=== PATIENT | male | born 1955 | race Caucasian/White ===

== ENCOUNTER 2021-11-29 23:07 | Emergency (ER) | payer MEDICAID, SELFPAY ==
[2021-11-29 23:09] VITALS: BP 155/74; PULSE 72; RESP 18; TEMP 36.9; O2SAT 98; BMI 34.1
[2021-11-29 23:24] VITALS: PULSE 71; O2SAT 96
[2021-11-29 23:27] VITALS: BMI 34.1
[2021-11-29 23:30] VITALS: PULSE 65; O2SAT 95
[2021-11-29 23:31] VITALS: BP 131/65; PULSE 65; O2SAT 94
[2021-11-29 23:35] LABS: Microscopic, Urine URINE MICROSCOPIC (MICROSCOPIC)
[2021-11-29 23:37] LABS: Appearance,Urine CLEAR (Clear); Bilirubin,Urine Negative (Negative); Blood, Urine 3+ (Negative); Color,Urine YELLOW (Yellow); Glucose,Urine (UA) Negative (Negative); Ketones,Urine Negative (Negative); Leukocyte Esterase,Urine 1+ (Negative); Nitrate,Urine Negative (Negative); Protein,Urine Negative (Negative); Specific Gravity, Urine 1.025 (1.005-1.030); Urobilinogen,Urine 0.2 EU/dl (0.2)
[2021-11-29 23:40] LABS: Basophils # 0.1 K/mm3 (0-0.2); Basophils % 0.7 % (0.1-2.0); Eosinophils # 0.1 K/mm3 (0.0-0.4); Eosinophils % 1.3 % (0.1-12.0); Hematocrit 46.6 % (42.0-52.0); Hemoglobin 14.5 g/dL (14.1-18.0); Lymphocytes # 2.1 K/mm3 (0.7-4.5); Lymphocytes % 25.2 % (10-50); Mean Corpuscular HGB Conc 31.1 g/dL (31.8-35.4); Mean Corpuscular Hemoglobin 28.7 pg (27.0-31.2); Mean Corpuscular Volume 92.1 fl (80-94); Mean Platelet Volume 8.5 fl (7.4-10.4); Monocytes # 0.6 K/mm3 (0.1-1.0); Neutrophils # 5.3 K/mm3 (1.8-7.8); Neutrophils % 65.7 % (37.0-80.0); Platelet Count 233 K/mm3 (142-424); Red Blood Count 5.06 M/mm3 (4.60-6.20); White Blood Count 8.1 K/mm3 (4.8-10.8)
[2021-11-29 23:41] LABS: RBC,Urine 20-50 #/hpf (0-3)
[2021-11-29 23:43] LABS: Alanine Aminotransferase 66 U/L (12-78); Albumin Level 4.1 g/dl (3.5-5.0); Albumin/Globulin Ratio 1.4 (1.1-1.8); Alkaline Phosphatase 89 U/L (38-126); Amylase 69 U/L (30-110); Anion Gap 11.1 mEq/L (5-15); Aspartate Amino Transferase 58 U/L (17-59); Bilirubin,Total 3.2 mg/dl (0.2-1.3); Blood Urea Nitrogen 15 mg/dl (9-20); Calcium 8.9 mg/dl (8.4-10.2); Carbon Dioxide 31 mmol/L (22.0-30.0); Chloride 100 mmol/L (98-107); Creatinine Clearance Estimated 60 mL/min (50-200); Estimated Glomerular Filt Rate 41 ml/min (>60); GFR (African American) 49 ML/MIN (>60); Globulin 2.9 g/dL (1.3-3.2); Glucose 145 mg/dl (74-100); Lipase 28 U/L (23-300); Potassium 4.1 mmoL/L (3.5-5.1); Sodium 138 mmol/L (136-145)
[2021-11-29 23:45] VITALS: PULSE 73; O2SAT 96
[2021-11-29 23:48] LABS: C-Reactive Protein 22.9 mg/L (0-4)
--- NOTE | 2021-11-29 23:53 | CT_ITS ---
PROCEDURE INFORMATION: Exam: CT Abdomen And Pelvis Without Contrast Exam date and time: 11/29/2021 11:59 PM Age: 66 years old Clinical indication: Abdominal pain; Flank; Left; Additional info: Left flank pain TECHNIQUE: Imaging protocol: Computed tomography of the abdomen and pelvis without contrast. Radiation optimization: All CT scans at this facility use at least one of these dose optimization techniques: automated exposure control; mA and/or kV adjustment per patient size (includes targeted exams where dose is matched to clinical indication); or iterative reconstruction. COMPARISON: No relevant prior studies available. FINDINGS: Lungs: Moderate scarring and atelectasis in the lower lungs. Heart: Borderline cardiomegaly. Coronary artery calcifications. Liver: Hepatic steatosis. Gallbladder and bile ducts: Cholelithiasis. Pancreas: Normal. No ductal dilation. Spleen: Normal. No splenomegaly. Adrenal glands: Normal. No mass. Kidneys and ureters: Left hydronephrosis secondary to a 3-4 mm calculus in the distal ureter. Low attenuation renal lesions measuring up to 2 cm in diameter are incompletely characterized, but are likely cysts. No followup imaging is warranted. Stomach and bowel: Unremarkable. No obstruction. No mucosal thickening. Appendix: Unremarkable appendix. Intraperitoneal space: Unremarkable. No free air. No significant fluid collection. Vasculature: The arteries demonstrate moderate atherosclerotic disease. Lymph nodes: Unremarkable. No enlarged lymph nodes. Urinary bladder: Unremarkable as visualized. Reproductive: Moderate prostate enlargement. Bones/joints: The lumbar spine demonstrates moderate degenerative changes at multiple levels. Soft tissues: Unremarkable. IMPRESSION: 1. Left hydronephrosis secondary to a 3-4 mm calculus in the distal ureter. 2. Cholelithiasis. 3. Hepatic steatosis. COMMENTS: Consistent with the [employer]'s Incidental Findings Committee white paper (J Am Willie Radiol 2018): Any incidental renal lesion less than 1 cm or classified as too small to characterize, or any incidental cystic renal lesion characterized as simple-appearing, is likely benign. No follow-up imaging is recommended for these lesions per consensus recommendations based on imaging criteria.
[2021-11-30 00:02] LABS: Procalcitonin 0.268 ng/mL (0.0-2.0)
[2021-11-30 00:05] LABS: Erythrocyte Sedimentation Rate 17 mm/hr (0-20)
--- NOTE | 2021-11-30 00:24 | HMH.EDABDPAI ---
Discharge Plan Disposition Patient Disposition: Home, Self-Care Chief Complaint: Abdominal Pain Prescriptions Prescriptions: New tamsulosin [Flomax] 0.4 mg capsule 0.4 mg PO DAILY Qty: 10 0RF tamsulosin [Flomax] 0.4 mg capsule 0.4 mg PO DAILY Qty: 10 0RF No Action atorvastatin [Lipitor] 40 mg Tablet 40 mg PO HS aspirin 81 mg Tablet 81 mg PO DAILY metoprolol succinate 25 mg Tablet Extended Release 24 Hr 25 mg PO DAILY Referrals Follow up/Referrals: Provider,Referral, [Primary Care Provider] - See instructions Clinical Impressions Clinical Impression: Renal colic on left side, Cholelithiasis Instructions Patient Instructions: DI for Kidney Stones Discharge ED Provider: Tal Ortiz Abdominal Pain HPI General Chief Complaint: Abdominal Pain Stated Complaint: Left abdominal pain Time Seen by Provider: 11/30/21 00:24 Mode of Arrival: Family Vehicle Source of Information: Patient and Medical Record Limitations: No Limitations Description of Symptoms (Recalled from ER Triage Doc. by RN): Pt c/o L abd pain & pelvic pain, that radiates to L back. Reports is began about 12 hr ago and has increased in pain. Denies any N/V/D. Denies fever or chills. Denies any urinary complaints. History of Present Illness HPI narrative: acute onset of lt sided abd pain complaint: flank pain Onset (ago): hour(s) Consistency: intermittent Location: L flank Severity: moderate Related Data Home Medications Medication Instructions Recorded Confirmed aspirin 81 mg tablet 81 mg PO DAILY heart health 11/29/21 11/29/21 atorvastatin 40 mg tablet (Lipitor) 40 mg PO HS High cholesterol 11/29/21 11/29/21 metoprolol succinate 25 mg 25 mg PO DAILY High blood pressure 11/29/21 11/29/21 tablet,extended release 24 hr Previous Rx's Medication Instructions Recorded tamsulosin 0.4 mg capsule (Flomax) 0.4 mg PO DAILY #10 caps 11/30/21 tamsulosin 0.4 mg capsule (Flomax) 0.4 mg PO DAILY #10 caps 11/30/21 Allergies Allergy/AdvReac Type Severity Reaction Status Date / Time No Known Allergies Allergy Verified 11/29/21 23:28 [facility] Medical History (Updated 11/30/21 @ 01:34 by Tal Ortiz MD) High blood cholesterol High blood pressure Surgical History (Updated 11/29/21 @ 23:59 by Kath Carpenter RN) H/O heart bypass surgery Social History (Updated 11/30/21 @ 00:03 by Kath Carpenter RN) Smoking Status: Former smoker alcohol intake: never substance use type: denies use current occupational status: retired housing: house lives independently: Yes marital status: pets and animals: No ROS Obtained: Yes All systems reviewed & no additional complaints except as documented Physical Exam General General appearance: alert Head Head exam: normocephalic Eye Eye exam: Present PERRL and EOMI ENT ENT exam: Present mucous membranes moist Neck Neck exam: Absent trachea midline Respiratory Respiratory exam: Present normal lung sounds bilaterally Cardiovascular Cardiovascular exam: Present regular rate Abdominal Exam Abdominal exam: Present soft Extremities Exam Extremities exam: Absent calf tenderness Back Exam Back exam: Present CVA tenderness (L) Neurological Exam Neurological exam: Present alert, oriented X3 and CN II-XII intact Psychiatric Psychiatric exam: Present normal affect Skin Skin exam: Absent rash Medical Decision Making Medical Records Medical records reviewed: Yes I reviewed the patient's medical records. Rohan Inquiry Pt receiving controlled substance: No Vital Signs: 11/29/21 23:09 11/29/21 23:24 11/29/21 23:30 Temperature 98.4 F Temperature Source Oral Pulse Rate 71 65 Pulse Rate [Right] 72 Respiratory Rate 18 Blood Pressure Blood Pressure [Right Arm] 155/74 H Blood Pressure Mean Blood Pressure Mean [Right Arm] 101 Blood Pressure Source [Right Arm] Automatic Cuff 02 Sat by Pulse
[2021-11-30 01:39] VITALS: BP 137/71; PULSE 87; RESP 19; TEMP 36.8; O2SAT 97
[2021-11-30 01:55] VITALS: BP 130/64; PULSE 70; RESP 18; TEMP 36.6; O2SAT 99
== END 2021-11-30 01:57 | disposition home or self-care (01) ==
PROVIDERS: Emergency Provider Emergency Medicine
DX: N13.2 Hydronephrosis with renal and ureteral calculous obstruction (principal); N13.1 Hydronephrosis with ureteral stricture, not elsewhere classified; K76.0 Fatty (change of) liver, not elsewhere classified; Z79.82 Long term (current) use of aspirin; Z79.899 Other long term (current) drug therapy; Z86.79 Personal history of other diseases of the circulatory system; Z87.891 Personal history of nicotine dependence; E78.5 Hyperlipidemia, unspecified; R03.0 Elevated blood-pressure reading, without diagnosis of hypertension
CPT/HCPCS: 74176; 80053; 81001; 82150; 83690; 84145; 85025; 85651; 86140; 87086; 96365; 96375; 99284; J2405

== ENCOUNTER 2022-12-27 00:36 | Emergency (ER) | payer MEDICAID, SELFPAY ==
[2022-12-27 00:36] VITALS: BP 175/93; PULSE 73; RESP 18; TEMP 36.7; O2SAT 96; BMI 34.7
--- NOTE | 2022-12-27 00:45 | ECG_ITS ---
APPROVED REPORT Exam: Resting ECG HR:62 bpm ECG Measurements Heart Rate 62 AXES VT 159 P 33 QRSd 100 QRS 40 QT 386 T 58 QTc 391 Conclusion SINUS RHYTHM NORMAL ECG UNCONFIRMED REPORT Electronically signed by : Mk Cantu MD 12/27/2022 07:28:51
--- NOTE | 2022-12-27 00:45 | CT_ITS ---
PROCEDURE INFORMATION: Exam: CTA Chest With Contrast Exam date and time: 12/27/2022 1:09 AM Age: 67 years old Clinical indication: Pain; Chest pressure; Additional info: Chest pain rad to back TECHNIQUE: Imaging protocol: Computed tomographic angiography of the chest with contrast. Exam focused on the arteries. 3D rendering (Not supervised by radiologist): MIP and/or 3D reconstructed images were created by the technologist. Radiation optimization: All CT scans at this facility use at least one of these dose optimization techniques: automated exposure control; mA and/or kV adjustment per patient size (includes targeted exams where dose is matched to clinical indication); or iterative reconstruction. Contrast material: ISOVUE; Contrast volume: 100 ml; Contrast route: INTRAVENOUS (IV); REPORTING DATA: Count of CT and Cardiac NM exams in prior 12 months: This patient has received 0 known CTs and 0 known cardiac nuclear medicine studies in the 12 months prior to the current study. COMPARISON: CT ABDOMEN PELVIS WO CON 11/29/2021 11:59 PM FINDINGS: Pulmonary arteries: Normal. No pulmonary emboli. Aorta: There is atherosclerotic disease of the visualized aorta and its major branch vessels. Lungs: Changes of interstitial lung disease without honeycombing identified at the lung bases, favoring NSIP. Scattered areas of bronchial wall thickening which are likely chronic inflammatory. Pleural spaces: Unremarkable. No pneumothorax. No pleural effusion. Heart: Unremarkable. No cardiomegaly. No pericardial effusion. Coronary arteries: There is moderate coronary atherosclerotic disease/calcification. Lymph nodes: Unremarkable. No enlarged lymph nodes. Gallbladder and bile ducts: There is cholelithiasis within an otherwise normal gallbladder. Kidneys and ureters: Simple appearing left renal cyst. Bones/joints: The patient is status post median sternotomy. There is diffuse degenerative disease of the visualized osseous structures. Soft tissues: Unremarkable. IMPRESSION: 1. No evidence for clinically relevant pulmonary arterial filling defect, dense parenchymal consolidation, pleural effusion, or pneumothorax. No acute intrathoracic anomaly. 2. Findings suggest interstitial lung disease, appearance favoring NSIP. COMMENTS: Consistent with the [employer]'s Incidental Findings Committee white paper (J Am Willie Radiol 2018): Any incidental renal lesion less than 1 cm or classified as too small to characterize, or any incidental cystic renal lesion characterized as simple-appearing, is likely benign. No follow-up imaging is recommended for these lesions per consensus recommendations based on imaging criteria.
--- NOTE | 2022-12-27 00:48 | HMH.EDGENADL ---
Discharge Plan Disposition Patient Disposition: Home, Self-Care Condition: Good Prescriptions Prescriptions: No Action atorvastatin [Lipitor] 40 mg Tablet 40 mg PO HS aspirin 81 mg Tablet 81 mg PO DAILY metoprolol succinate 25 mg Tablet Extended Release 24 Hr 25 mg PO DAILY tamsulosin [Flomax] 0.4 mg capsule 0.4 mg PO DAILY Qty: 10 0RF Referrals Follow up/Referrals: Trino Spears MD [Staff Physician] - See instructions Provider,MD Isma [Primary Care Provider] - See instructions Activity Restrictions/Add. Instructions Additional Instructions/Restrictions: You were evaluated in the emergency department today. Please follow-up with your primary care provider as well as your cardiology teacher. Continue taking your medications at home as prescribed. Return to the emergency department for any new or worsening symptoms. Clinical Impressions Clinical Impression: Chest pain Qualifiers: Chest pain type: unspecified Qualified Code(s): R07.9 - Chest pain, unspecified Instructions Patient Instructions: DI for Atypical Chest Pain Discharge ED Provider: Yasmin Adkins General Adult HPI General Chief complaint: Chest Pain Stated complaint: CP Time Seen by Provider: 12/27/22 00:40 Mode of Arrival: Ambulatory Source of Information: Patient Limitations: No Limitations Description of Symptoms (Recalled from ER Triage Doc. by RN): Patient reports midsternal chest pain that radiates to his back that started approx at 10pm. States he has taken 2 nitro, tylenol, oxycodone and 2 aspirin with no relief of his symptoms. History of Present Illness HPI narrative: This patient is a 67-year-old male with a history of CAD and hypertension presenting to the emergency department for evaluation with concern for substernal chest pain radiating straight through to his upper back. He stated this started suddenly while he was watching TV around 10:00 PM. He took 2 nitroglycerin, oxycodone, aspirin, and Tylenol at home with no improvement in his symptoms. He states that he is well prior to this with no fevers, chills, cough, congestion, shortness of breath, abdominal pain, nausea, vomiting, changes bowel movements, or other concerns. No traumatic injuries noted. Nothing seems to make his symptoms better or worse. Related Data Home Medications Medication Instructions Recorded Confirmed aspirin 81 mg tablet 81 mg PO DAILY heart health 11/29/21 11/29/21 atorvastatin 40 mg tablet (Lipitor) 40 mg PO HS High cholesterol 11/29/21 11/29/21 metoprolol succinate 25 mg 25 mg PO DAILY High blood pressure 11/29/21 11/29/21 tablet,extended release 24 hr Previous Rx's Medication Instructions Recorded tamsulosin 0.4 mg capsule (Flomax) 0.4 mg PO DAILY #10 caps 11/30/21 Allergies Allergy/AdvReac Type Severity Reaction Status Date / Time No Known Allergies Allergy Verified 11/29/21 23:28 [facility] Disclaimer: The information contained in this section may have been updated after the patient was seen, as this information can be updated by other users. Medical History High blood cholesterol High blood pressure Surgical History H/O heart bypass surgery Social History Smoking Status: Never smoker alcohol intake: never substance use type: denies use current occupational status: retired Travel in the last 8 weeks: None housing: house lives independently: Yes marital status: pets and animals: No ROS Obtained: Yes All systems reviewed & no additional complaints except as documented Physical Exam General General appearance: alert and in no apparent distress Head Head exam: atraumatic and normocephalic Eye Eye exam: Present normal appearance, PERRL and EOMI ENT ENT exam: Present normal exam, normal oropharynx, mucous m
[2022-12-27 00:52] LABS: Basophils % 0.5 % (0.1-2.0); Eosinophils # 0.1 K/mm3 (0.0-0.4); Eosinophils % 1.1 % (0.1-12.0); Hematocrit 47.7 % (42.0-52.0); Hemoglobin 15.2 g/dL (14.1-18.0); Lymphocytes # 1.7 K/mm3 (0.7-4.5); Lymphocytes % 20.1 % (10-50); Mean Corpuscular HGB Conc 31.8 g/dL (31.8-35.4); Mean Corpuscular Hemoglobin 28.4 pg (27.0-31.2); Mean Corpuscular Volume 89.2 fl (80-94); Mean Platelet Volume 8.2 fl (7.4-10.4); Monocytes # 0.3 K/mm3 (0.1-1.0); Monocytes % 3.9 % (1.7-9.3); Neutrophils # 6.1 K/mm3 (1.8-7.8); Neutrophils % 74.3 % (37.0-80.0); Platelet Count 247 K/mm3 (142-424); Red Blood Count 5.35 M/mm3 (4.60-6.20); Red Cell Distribution Width 14.7 % (11.5-17.5); White Blood Count 8.2 K/mm3 (4.8-10.8)
[2022-12-27 00:55] LABS: Chloride 103 mmol/L (98-107); Potassium 4.5 mmoL/L (3.5-5.1); Sodium 138 mmol/L (136-145)
[2022-12-27 00:57] LABS: Blood Urea Nitrogen 16 mg/dl (9-20); Creatinine Clearance Estimated 99 mL/min (50-200); Estimated Glomerular Filt Rate 75 ml/min (>60); GFR (African American) 90 ML/MIN (>60)
[2022-12-27 00:58] LABS: Alanine Aminotransferase 48 U/L (12-78); Albumin Level 4.4 g/dl (3.5-5.0); Albumin/Globulin Ratio 1.3 (1.1-1.8); Alkaline Phosphatase 85 U/L (38-126); Anion Gap 11.5 mEq/L (5-15); Aspartate Amino Transferase 40 U/L (17-59); Bilirubin,Total 1.8 mg/dl (0.2-1.3); Calcium 8.8 mg/dl (8.4-10.2); Carbon Dioxide 28 mmol/L (22.0-30.0); Globulin 3.4 g/dL (1.3-3.2); Glucose 177 mg/dl (74-100); Lipase 44 U/L (23-300); Total Protein,Serum 7.8 g/dl (6.3-8.2)
[2022-12-27 01:00] LABS: INR 1.04 (0.9-1.1); Prothrombin Time 11.2 seconds (10.1-12.5)
[2022-12-27 01:03] LABS: PTT Heparin (inpatient only) 26.5 Seconds (23.6-34.0)
[2022-12-27 01:16] LABS: Troponin I < 0.01 ng/ml (0.00-0.034)
[2022-12-27 03:38] LABS: Troponin I 0.02 ng/ml (0.00-0.034)
[2022-12-27 03:58] VITALS: BP 131/69; PULSE 56; RESP 14; TEMP 36.6
== END 2022-12-27 04:07 | disposition home or self-care (01) ==
PROVIDERS: Emergency Provider Emergency Medicine
DX: R07.9 Chest pain, unspecified (principal); M54.6 Pain in thoracic spine; I25.10 Atherosclerotic heart disease of native coronary artery without angina pectoris; I10 Essential (primary) hypertension; E78.5 Hyperlipidemia, unspecified
CPT/HCPCS: 71275; 80053; 83690; 84484; 85025; 85610; 85730; 93005; 96374; 96375; 99285; J2405; Q9967

== ENCOUNTER 2023-01-19 04:56 | Observation (INO) | payer MEDICARE, MEDICAID, SELFPAY ==
[2023-01-19] VITALS (21 sets, daily range): BP systolic 108–195; BP diastolic 61–96; PULSE 66–95; RESP 16–18; TEMP 36.4–36.9; O2SAT 90–98; BMI 34.7; BMI 34.4
--- NOTE | 2023-01-19 05:03 | ECG_ITS ---
APPROVED REPORT Exam: Resting ECG HR:70 bpm ECG Measurements Heart Rate 70 AXES FL 161 P 65 QRSd 97 QRS 42 QT 388 T 51 QTc 409 Conclusion SINUS RHYTHM WITH SINUS ARRHYTHMIA NONSPECIFIC T-WAVE ABNORMALITY BORDERLINE ECG UNCONFIRMED REPORT Electronically signed by : Mk Cantu MD 01/19/2023 19:23:52
--- NOTE | 2023-01-19 05:07 | CT_ITS ---
PROCEDURE INFORMATION: Exam: CT Abdomen And Pelvis With Contrast Exam date and time: 01/19/2023 5:56 AM Age: 67 years old Clinical indication: Abdominal pain; Additional info: Upper abdominal/chest pain rad to back TECHNIQUE: Imaging protocol: Computed tomography of the abdomen and pelvis with contrast. Radiation optimization: All CT scans at this facility use at least one of these dose optimization techniques: automated exposure control; mA and/or kV adjustment per patient size (includes targeted exams where dose is matched to clinical indication); or iterative reconstruction. Contrast material: ISOVUE; Contrast volume: 100 ml; Contrast route: IV; REPORTING DATA: Count of CT and Cardiac NM exams in prior 12 months: This patient has received [address] and 0 known cardiac nuclear medicine studies in the 12 months prior to the current study. COMPARISON: CT ABDOMEN PELVIS WO CON 11/29/2021 11:59 PM FINDINGS: Lungs: Dependent atelectasis in the lung bases. Coronary arteries: Coronary artery calcifications are present. Liver: Mild hepatic steatosis again noted. No mass. Gallbladder and bile ducts: Cholelithiasis again noted. There is no evidence of biliary ductal dilation. Pancreas: Normal. No ductal dilation. Spleen: Normal. No splenomegaly. Adrenal glands: Normal. No mass. Kidneys and ureters: Stable simple left renal cyst, no imaging follow up recommended. The kidneys are otherwise unremarkable, no hydronephrosis. Stomach and bowel: There is no evidence of intestinal perforation or obstruction. The stomach is distended with ingested material and fluid. Appendix: No evidence of appendicitis. Intraperitoneal space: Unremarkable. No free air. No significant fluid collection. Vasculature: Mild atherosclerotic changes of the aorta and branch vessels. Lymph nodes: Unremarkable. No enlarged lymph nodes. Urinary bladder: Unremarkable as visualized. Reproductive: Enlarged prostate gland. The prostate demonstrates nonspecific parenchymal calcifications. Bones/joints: Degenerative changes of the spine. Similar scoliosis. Soft tissues: Unremarkable. IMPRESSION: 1. Similar cholelithiasis. 2. No acute findings.
--- NOTE | 2023-01-19 05:07 | CT_ITS ---
PROCEDURE INFORMATION: Exam: CTA Chest With Contrast Exam date and time: 01/19/2023 5:56 AM Age: 67 years old Clinical indication: Pain; Radiating; Prior surgery; Surgery date: 6+ months; Surgery type: Open heart; Additional info: Upper abdominal/chest pain rad to back TECHNIQUE: Imaging protocol: Computed tomographic angiography of the chest with contrast. Exam focused on the arteries. 3D rendering (Not supervised by radiologist): MIP and/or 3D reconstructed images were created by the technologist. Radiation optimization: All CT scans at this facility use at least one of these dose optimization techniques: automated exposure control; mA and/or kV adjustment per patient size (includes targeted exams where dose is matched to clinical indication); or iterative reconstruction. Contrast material: ISOVUE; Contrast volume: 100 ml; Contrast route: INTRAVENOUS (IV); REPORTING DATA: Count of CT and Cardiac NM exams in prior 12 months: This patient has received [address] and 0 known cardiac nuclear medicine studies in the 12 months prior to the current study. COMPARISON: CT ANGIO CHEST 12/27/2022 1:09 AM FINDINGS: Pulmonary arteries: Normal. No pulmonary emboli. Aorta: The aorta demonstrates mild atherosclerotic calcification. No thoracic aortic aneurysm or dissection. Lungs: Hypoventilatory changes of the lungs, with perihilar vascular crowding and a diffuse increase in pulmonary parenchymal density. Mild scarring in both lungs. No focal consolidation. Mild dependent atelectasis bilaterally. Pleural spaces: Unremarkable. No pneumothorax. No pleural effusion. Heart: Heart size is stable, upper limits normal. Coronary arteries: Post operative changes of CABG. Lymph nodes: Unremarkable. No enlarged lymph nodes. Bones/joints: Median sternotomy wires are present. Soft tissues: Unremarkable. IMPRESSION: No pulmonary emboli.
--- NOTE | 2023-01-19 05:09 | HMH.EDGENADL ---
Discharge Plan Disposition Patient Disposition: Admitted Chief Complaint: Abdominal Pain Prescriptions Prescriptions: No Action atorvastatin [Lipitor] 40 mg Tablet 40 mg PO HS aspirin 81 mg Tablet 81 mg PO DAILY metoprolol succinate 25 mg Tablet Extended Release 24 Hr 25 mg PO DAILY tamsulosin [Flomax] 0.4 mg capsule 0.4 mg PO DAILY Qty: 10 0RF Referrals Follow up/Referrals: Provider,Referral, [Primary Care Provider] - See instructions Clinical Impressions Clinical Impression: Non-ST elevation PA (NSTEMI), Cholelithiasis Instructions Patient Instructions: DI for Acute Abdominal Pain Discharge ED Provider: Christopher Evans General Adult HPI <Yasmin Adkins DO - Last Filed: 01/19/23 06:58> General Chief complaint: Abdominal Pain Stated complaint: abd and chest pain Time Seen by Provider: 01/19/23 05:02 History of Present Illness HPI narrative: This patient is a 67-year-old male with a history of CAD and cholelithiasis presenting to the emergency department for evaluation with concern for upper abdominal pain radiating up into his chest and to his back, nausea, dyspepsia, and belching that started around 9:00 PM last night. He states that he has taken oxycodone, Tylenol 3, aspirin, and Gas-X with no improvement. He became increasingly more miserable throughout the night, prompting him to come in for evaluation. He notes he had similar symptoms when he was evaluated here 12/26/2022. On medical record review, he was evaluated by myself and chest pain work-up was reassuring at that time. No imaging of the abdomen and pelvis was obtained. Patient was ultimately subsequently discharged home with instructions to follow-up with his primary care provider. He states since that he had been doing well until last night when the symptoms started acutely. He denies any associated fever, chills, cough, shortness of breath, change in bowel movements, rashes, or swelling. Related Data Home Medications Medication Instructions Recorded Confirmed aspirin 81 mg tablet 81 mg PO DAILY heart health 11/29/21 11/29/21 atorvastatin 40 mg tablet (Lipitor) 40 mg PO HS High cholesterol 11/29/21 11/29/21 metoprolol succinate 25 mg 25 mg PO DAILY High blood pressure 11/29/21 11/29/21 tablet,extended release 24 hr Previous Rx's Medication Instructions Recorded tamsulosin 0.4 mg capsule (Flomax) 0.4 mg PO DAILY #10 caps 11/30/21 Allergies Allergy/AdvReac Type Severity Reaction Status Date / Time No Known Allergies Allergy Verified 11/29/21 23:28 [facility] <Yasmin Adkins DO - Last Filed: 01/19/23 06:58> PFS Disclaimer: The information contained in this section may have been updated after the patient was seen, as this information can be updated by other users. Medical History High blood cholesterol High blood pressure Surgical History H/O heart bypass surgery Social History Smoking Status: Never smoker alcohol intake: never substance use type: denies use current occupational status: retired Travel in the last 8 weeks: None housing: house lives independently: Yes marital status: pets and animals: No <Yasmin Adkins DO - Last Filed: 01/19/23 06:58> ROS Obtained: Yes All systems reviewed & no additional complaints except as documented Physical Exam <Yasmin Adkins DO - Last Filed: 01/19/23 06:58> General General appearance: alert and in no apparent distress Head Head exam: atraumatic and normocephalic Eye Eye exam: Present normal appearance, PERRL and EOMI ENT ENT exam: Present normal exam, normal oropharynx, mucous membranes moist and normal external ear exam Neck Neck exam: Present normal inspection, full ROM and trachea midline; Absent tenderness Chest Chest inspection: Present normal inspectio
[2023-01-19 05:18] LABS: Basophils % 0.5 % (0.1-2.0); Eosinophils # 0.1 K/mm3 (0.0-0.4); Eosinophils % 1.1 % (0.1-12.0); Hematocrit 46.6 % (42.0-52.0); Hemoglobin 15.7 g/dL (14.1-18.0); Lymphocytes # 1.8 K/mm3 (0.7-4.5); Mean Corpuscular HGB Conc 33.7 g/dL (31.8-35.4); Mean Corpuscular Volume 89.1 fl (80-94); Mean Platelet Volume 8.1 fl (7.4-10.4); Monocytes # 0.4 K/mm3 (0.1-1.0); Monocytes % 4.6 % (1.7-9.3); Neutrophils # 5.3 K/mm3 (1.8-7.8); Neutrophils % 69.7 % (37.0-80.0); Platelet Count 252 K/mm3 (142-424); Red Blood Count 5.23 M/mm3 (4.60-6.20); Red Cell Distribution Width 14.7 % (11.5-17.5); White Blood Count 7.6 K/mm3 (4.8-10.8)
[2023-01-19 05:29] LABS: Alanine Aminotransferase 54 U/L (12-78); Albumin Level 4.8 g/dl (3.5-5.0); Albumin/Globulin Ratio 1.3 (1.1-1.8); Alkaline Phosphatase 85 U/L (38-126); Anion Gap 15.2 mEq/L (5-15); Aspartate Amino Transferase 47 U/L (17-59); Bilirubin,Total 1.8 mg/dl (0.2-1.3); Blood Urea Nitrogen 16 mg/dl (9-20); Calcium 9.5 mg/dl (8.4-10.2); Carbon Dioxide 30 mmol/L (22.0-30.0); Chloride 96 mmol/L (98-107); Creatinine Clearance Estimated 99 mL/min (50-200); Estimated Glomerular Filt Rate 75 ml/min (>60); GFR (African American) 90 ML/MIN (>60); Globulin 3.6 g/dL (1.3-3.2); Glucose 167 mg/dl (74-100); Lipase 468 U/L (23-300); Potassium 4.2 mmoL/L (3.5-5.1); Sodium 137 mmol/L (136-145); Total Protein,Serum 8.4 g/dl (6.3-8.2)
[2023-01-19 05:41] LABS: Troponin I 0.05 ng/ml (0.00-0.034)
[2023-01-19 05:47] LABS: Lactic Acid 1.3 mmol/L (0.7-2.1)
--- NOTE | 2023-01-19 06:16 | ECG_ITS ---
APPROVED REPORT Exam: Resting ECG HR:66 bpm ECG Measurements Heart Rate 66 AXES VA 170 P 56 QRSd 99 QRS 38 QT 374 T 60 QTc 387 Conclusion SINUS RHYTHM WITH MARKED SINUS ARRHYTHMIA BORDERLINE ECG UNCONFIRMED REPORT Electronically signed by : Mk Cantu MD 01/19/2023 19:23:45
--- NOTE | 2023-01-19 06:47 | PC.NURSE ---
Spoke with pt, advised that feels alot better than he did during previous reassessments, reports pain 3/10 after previously administered medication, denies nausea at ths time, no additional acute distress noted/reported.
--- NOTE | 2023-01-19 07:10 | PC.NURSE ---
Collected 2nd troponin for 2hr per Dr. Evans.
[2023-01-19 07:50] LABS: Troponin I 0.14 ng/ml (0.00-0.034)
--- NOTE | 2023-01-19 08:03 | PC.NURSE ---
Dr. Evans speaking with hospitalist.
--- NOTE | 2023-01-19 08:06 | PC.NURSE ---
Called care management and s/w Kassi to notify admission
--- NOTE | 2023-01-19 08:11 | PC.NURSE ---
Dr. Evans speaking with Dr. Spears
--- NOTE | 2023-01-19 08:23 | HMH.PHAINT1 ---
Pharmacy Intervention Comments: MEDICATION RECONCILIATION COMPLETED ON PATIENT USING EXTERNAL FILL HISTORY FROM PHARMACY. -CARLOS TILLMAN, JTD
--- NOTE | 2023-01-19 08:31 | PC.NURSE ---
gave report to Veena Santo RN
--- NOTE | 2023-01-19 09:26 | CA_ITS ---
APPROVED REPORT EXAM: Comprehensive 2D, Doppler, and color-flow Echocardiogram [employer] Technician: Anca Rizzo RVT Ht: 5 ft 6 in Wt: 213lbs BSA: 2.05 BP: 165/85 mmHg Indications: NSTEMI,HTN,CABG,CAD,HLD 2D Dimensions LVOT 2.12 cm (M/F) 1.5-2.5 LA Volume 44.00 mL LA Volume Index 21.36 mL/m2 (M/F) 16-34 M-Mode Dimensions RVDd 2.77 cm (0.9-2.6) LA Diam 4.52 cm (1.9-4.0) LVDd 5.54 cm (3.5-5.7) Ao Diam 3.25 cm (2.0-3.7) LVDs 3.97 cm (3.5-5.7) IVSd 1.32 cm (0.6-1.1) PWd 0.72 cm (0.6-1.1) EF (Teich) 54.10% FS 28.30% EDV (Teich) 149.90 mL TAPSE 1.84 (<1.7) ESV (Teich) 68.80 mL LV Diastology E Decel Time 150.00 (160-240 msec) E/A Ratio 0.7 MED E' 7.20 (< 7 cm/sec) E'/MED E' Ratio 11.75 (>14) LAT E' 12.30 (<10 cm/sec) E/LAT E' Ratio 6.88 (>14) Aortic Valve AO Peak GR. 11.60 mmHg Mitral Valve MV E Max Jignesh. 85.00 (40-130 cm/s) MV A Velocity 125.00 (40-130 cm/s) E/A Ratio 0.68 MV Decel. Time 150.00 (160-240 ms) MV PHT 44.00 ms Pulmonary Valve PV Peak Velocity 57.00 (50-150 cm/s) Tricuspid Valve TR P. Velocity 241.00 cm/s RAP Estimate 10.00 mmHg RVSP 33.20 mmHg Left Ventricle The left ventricle is normal size. The left ventricular systolic function is low-normal. The left ventricular ejection fraction is within the low-normal range. There is normal left ventricular wall thickness. Borderline hypokinesis is present. There is mild hypokinesis of the anterior, anterolateral, and anteroseptal LV castellano. The left ventricular diastolic function is normal. LVEF is 50%. Right Ventricle The right ventricle is normal size. The right ventricular systolic function is normal. Atria The left atrium is mildly dilated. The right atrium size is normal. There is no Doppler evidence of interatrial shunt. Aortic Valve The aortic valve is mildly thickened. There is no aortic valvular stenosis. Trace aortic regurgitation. Mitral Valve The mitral valve is normal in structure. No evidence of mitral valve stenosis. Mild bileaflet mitral valve prolapse. Mild mitral regurgitation. Tricuspid Valve The tricuspid valve leaflets are thin and pliable. Mild tricuspid regurgitation. RVSP is 30-35 mmHg. Pulmonic Valve The pulmonary valve is normal in structure. Trace pulmonic regurgitation. Great Vessels The aortic root is normal in size. The ascending aorta is normal in size. IVC is normal in size and collapses >50% with inspiration. Pericardium There is no pericardial effusion. Other Information Study Quality: Fair Conclusion Low-normal LV systolic function (LVEF 50%). Mild hypokinesis of the anterior, anterolateral, and anteroseptal LV castellano. Mild bileaflet MV prolapse, mild MR. Electronically signed by : Nikole Finch MD 01/19/2023 18:22:30
--- NOTE | 2023-01-19 09:28 | IR_ITS ---
APPROVED REPORT Patient Location: Inpatient PROCEDURES Left heart catheterization Left ventriculogram Selective coronary angiogram Selective engagement of the left internal mammary artery to the LAD Selective engagement of saphenous vein graft to the first obtuse marginal artery Selective engagement of saphenous vein graft to the right coronary INDICATION Non-ST elevation myocardial infarction, Coronary artery disease, Struve coronary bypass surgery Informed consent was obtained prior to the procedure. COMPLICATIONS None Estimated Blood Loss: Less than 10 mls TECHNIQUE One percent lidocaine used to anesthetize the right groin. The right femoral artery was accessed via the Seldinger technique and a 5 Serbian sheath was placed in the right femoral artery. A JL 4, JR4 catheter were used to perform left heart catheterization, left ventriculogram selective coronary angiography as well as selective engagement of the 2 vein grafts and the left internal mammary artery. At the end of the procedure the patient was transferred to the postop holding area in stable condition for sheath removal. ANGIOGRAPHIC RESULTS The left main artery Has a distal 20 to 30% hazy stenosis The left anterior descending artery Proximally occluded The circumflex artery Is dominant and has an ostial 10 to 20% stenosis. First obtuse marginal artery is ostially occluded. Distal circumflex artery gives off small terminal obtuse marginal artery branches all of which are patent The right coronary artery Nondominant and has a proximal 90% stenosis mid vessel 90% stenosis The LARKIN ventriculogram reveals Preserved ejection fraction at 55 to 60% The left ventricular end-diastolic pressure 10 mmHg SWAIN graft is wide open. Makes his first anastomosis onto a first diagonal artery then skips to the LAD. Both limbs are widely patent Saphenous vein graft to first obtuse marginal artery is widely patent Saphenous vein graft to right coronary artery proximally occluded IMPRESSION Small nondominant right coronary artery which has an occluded saphenous vein graft supplying the distal vessel Preserved ejection fraction Normal left ventricular end-diastolic pressure PLAN 1. Medical management for coronary artery disease 2. Recommend further evaluation of elevated lipase. Consider GI evaluation and work-up 3. Continue risk factor modification Electronically signed by : Trino Spears MD 01/19/2023 13:34:21
--- NOTE | 2023-01-19 09:32 | PC.NURSE ---
Home Medications Tal Burgess Medication Instructions Recorded Confirmed atorvastatin 40 mg tablet (Lipitor) 40 mg PO HS Cholesterol 11/29/21 01/19/23 metoprolol succinate 25 mg 25 mg PO DAILY High blood pressure 11/29/21 01/19/23 tablet,extended release 24 hr aspirin 81 mg tablet,delayed 81 mg PO DAILY Heart Health 01/19/23 01/19/23 release
--- NOTE | 2023-01-19 10:49 | EXP.CARD.CON ---
History of Present Illness History of Present Illness Consult date: 01/19/23 Requesting physician: Ammy Peters Consult reason: chest pain Chief complaint: chest pain History of present illness: This is a 67-year-old white gentleman who presented to the emergency department with chest pain and abdominal pain. The patient has a history of known coronary artery disease status post 5 vessel coronary artery bypass grafting, hypertension and hyperlipidemia. The patient states that he had sudden onset of chest and abdominal pain last night around 9 PM. He states that this started off as an epigastric pain that radiated up into the left side of his chest and into the left side of his back. He states that this was associated with shortness of breath, nausea, belching and diaphoresis. The patient states that he took oxycodone, Tylenol 3, aspirin and Gas-X with no improvement of his symptoms. He states that he did not get any sleep last night because the pain persisted from 9 AM and at 5 AM this morning he was still having the pain he decided to come into the emergency department. He states that this was severe at times. The patient reports that 2 months ago he went to the emergency department at [facility] for the same symptoms and then was in the emergency department here at [facility] on 12/26/2022 for similar symptoms. He states that the symptoms continue to progress and worsen. He denies any fever, chills, vomiting, diarrhea, PND or orthopnea. He denies any lower extremity edema. [facility] Disclaimer: The information contained in this section may have been updated after the patient was seen, as this information can be updated by other users. Medical History (Updated 01/19/23 @ 11:05 by Tatiana Stubbs APRN) CAD in [place] artery H/O renal calculi High blood cholesterol High blood pressure MEAGAN (obstructive sleep apnea) Surgical History (Updated 01/19/23 @ 11:04 by Tatiana Stubbs APRN) H/O heart bypass surgery S/P CABG x 5 Family History (Updated 01/19/23 @ 09:11 by Lissy Damian RN) Other No significant family history Social History (Updated 01/19/23 @ 09:12 by Lissy Damian RN) Smoking Status: Never smoker alcohol intake: never substance use type: denies use current occupational status: retired Travel in the last 8 weeks: Inside the [place] housing: house lives independently: Yes marital status: pets and animals: No Review of Systems Review of Systems Review of systems:: pertinent systems reviewed and negative unless documented below Constitutional Constitutional: Reports system reviewed and no additional complaints, except as documented Eyes Eyes: Reports system reviewed and no additional complaints, except as documented ENT Ears, Nose, Mouth, and Throat: Reports system reviewed and no additional complaints, except as documented *Cardiovascular Cardiovascular: Reports system reviewed and no additional complaints, except as documented, Reports chest pain, Reports chest pain at rest, Reports chest pain with activity, Reports diaphoresis, Reports dyspnea, Denies leg edema and Reports radiating jaw, neck or arm pain *Respiratory Respiratory: Reports system reviewed and no additional complaints, except as documented and Reports dyspnea *Gastrointestinal Gastrointestinal: Reports system reviewed and no additional complaints, except as documented, Reports abdominal pain, Reports belching, Reports dyspepsia, Reports nausea and Denies vomiting *Genitourinary Genitourinary: Reports system reviewed and no additional complaints, except as documented *Musculoskeletal Musculoskeletal: Reports system reviewed and no additional complaints, except as documented Integumentary/Breasts Skin/Breast: Reports system reviewed and no additional complaints, except as documented *Neurologic Neurologic: Reports system reviewed and no additional complaints, except as documented Psy
[2023-01-19 11:06] LABS: Chol/HDL Ratio 4.9 (1-3.5); Cholesterol 191 mg/dl (140-200); HDL Cholesterol 39 mg/dl (40-60); Triglycerides 127 mg/dl (30-150); VLDL Cholesterol 25 mg/dL (0-40)
--- NOTE | 2023-01-19 14:26 | EXP.HP ---
History of Present Illness *Admission Date: 01/19/23 *Reason for visit:: abdominal Pain and Chest pain *History of present illness: Patient is a 67-year-old male with past medical history of CAD status post CABG, hypertension, obstructive sleep apnea who presented to hospital due to complaints of abdominal pain, lower chest pain. According to patient he has been having episodes of abdominal pain, he had 3 episodes of abdominal pain mostly in the right side of abdomen and lower chest and epigastric area that radiates to his left chest, episodes of pain start after food intake. He mentions he cannot pinpoint the exact area of pain localization, it feels like pain radiates to left chest. He rates pain episodes as sharp and resolved on their own. He he had associated nausea he mentions his pain is resolved right now, denies any shortness of breath diarrhea constipation dysuria fever chills cough. [facility] Disclaimer: The information contained in this section may have been updated after the patient was seen, as this information can be updated by other users. Medical History (Updated 01/19/23 @ 11:05 by Tatiana Stubbs APRN) CAD in [place] artery H/O renal calculi High blood cholesterol High blood pressure MEAGAN (obstructive sleep apnea) Surgical History H/O heart bypass surgery S/P CABG x 5 Family History Other No significant family history Social History (Updated 01/19/23 @ 09:12 by Lissy Damian RN) Smoking Status: Never smoker alcohol intake: never substance use type: denies use current occupational status: retired Travel in the last 8 weeks: Inside the [facility] housing: house lives independently: Yes marital status: pets and animals: No Review of Systems Review of Systems Review of systems:: pertinent systems reviewed and negative unless documented below Constitutional Constitutional: Reports as per HPI Eyes Eyes: Reports as per HPI *Cardiovascular Cardiovascular: Reports as per HPI *Respiratory Respiratory: Reports system reviewed and no additional complaints, except as documented *Gastrointestinal Gastrointestinal: Reports system reviewed and no additional complaints, except as documented, Reports abdominal pain, Reports nausea and Reports vomiting *Genitourinary Genitourinary: Reports as per HPI *Musculoskeletal Musculoskeletal: Reports as per HPI *Neurologic Neurologic: Reports system reviewed and no additional complaints, except as documented Psychiatric Psychiatric: Reports as per HPI Endocrine Endocrine: Reports as per HPI Meds Home Medications and Allergies Home Medications Medication Instructions Recorded Confirmed Type atorvastatin 40 mg tablet (Lipitor) 40 mg PO HS Cholesterol 11/29/21 01/19/23 History metoprolol succinate 25 mg 25 mg PO DAILY High blood pressure 11/29/21 01/19/23 History tablet,extended release 24 hr aspirin 81 mg tablet,delayed 81 mg PO DAILY Heart Health 01/19/23 01/19/23 History release New Prescriptions to Start Prescriptions: Allergies Allergy/AdvReac Type Severity Reaction Status Date / Time No Known Allergies Allergy Verified 11/29/21 23:28 Exam Data for Last 24 hours Vital signs and Labs for Last 24 Hours: Temp Pulse Resp BP Pulse Ox O2 Del Method 97.5 F L 78 18 195/96 H 98 Room Air 01/19/23 09:01 01/19/23 09:01 01/19/23 09:01 01/19/23 09:01 01/19/23 09:01 01/19/23 13:00 Laboratory Results - last 24 hr 01/19/23 05:10: WBC 7.6, RBC 5.23, Hgb 15.7, Hct 46.6, MCV 89.1, MCH 30.0, MCHC 33.7, RDW 14.7, Plt Count 252, MPV 8.1, Neut % (Auto) 69.7, Lymph % (Auto) 24.0, Elliott % (Auto) 4.6, Eos % (Auto) 1.1, Baso % (Auto) 0.5, Neut # (Auto) 5.3, Lymph # (Auto) 1.8, Elliott # (Auto) 0.4, Eos # (Auto) 0.1, Baso # (Auto) 0.0, Sodium 137, Potassium 4.2, Chloride 96 L, Carbon Dioxide 30, Anion Gap 15.2 H, B
[2023-01-19 14:55] LABS: Troponin I 0.53 ng/ml (0.00-0.034)
--- NOTE | 2023-01-19 19:03 | PC.NURSE ---
A&OX4. TOLERATING RA WELL. LEFT HEART CATH TODAY, R GROIN SITE, DRESSING IN PLACE, CDI. NO DRAINAGE NOTED. PT HAS BEEN SLEEPING MAJORITY OF AFTERNOON. NO NEEDS OR C/O NOTED, VSS.
[2023-01-19 19:41] LABS: Troponin I 0.22 ng/ml (0.00-0.034)
[2023-01-20] VITALS: BP 94/56; PULSE 80; PULSE 87; RESP 19; TEMP 37.4; O2SAT 92
[2023-01-20 04:00] VITALS: BP 94/56; PULSE 70; PULSE 74; RESP 20; TEMP 37.6; O2SAT 93; BMI 34.7
--- NOTE | 2023-01-20 05:38 | PC.NURSE ---
no events through the night. no report of cp. groin site c/d/i
[2023-01-20 06:35] VITALS: BP 101/52; PULSE 70; TEMP 37.2
[2023-01-20 06:44] LABS: Chloride 100 mmol/L (98-107)
[2023-01-20 06:45] LABS: Potassium 4.1 mmoL/L (3.5-5.1); Sodium 133 mmol/L (136-145)
[2023-01-20 06:48] LABS: Anion Gap 11.1 mEq/L (5-15); Blood Urea Nitrogen 22 mg/dl (9-20); Calcium 8.1 mg/dl (8.4-10.2); Carbon Dioxide 26 mmol/L (22.0-30.0); Creatinine Clearance Estimated 71 mL/min (50-200); Estimated Glomerular Filt Rate 51 ml/min (>60); GFR (African American) 61 ML/MIN (>60); Glucose 122 mg/dl (74-100)
[2023-01-20 06:51] LABS: Basophils % 0.4 % (0.1-2.0); Eosinophils # 0.2 K/mm3 (0.0-0.4); Hematocrit 37.8 % (42.0-52.0); Hemoglobin 13.2 g/dL (14.1-18.0); Lymphocytes % 30.3 % (10-50); Mean Corpuscular Hemoglobin 30.4 pg (27.0-31.2); Mean Corpuscular Volume 86.9 fl (80-94); Mean Platelet Volume 8.1 fl (7.4-10.4); Monocytes # 0.5 K/mm3 (0.1-1.0); Neutrophils # 3.9 K/mm3 (1.8-7.8); Neutrophils % 58.3 % (37.0-80.0); Platelet Count 194 K/mm3 (142-424); Red Blood Count 4.35 M/mm3 (4.60-6.20); Red Cell Distribution Width 14.6 % (11.5-17.5); White Blood Count 6.7 K/mm3 (4.8-10.8)
[2023-01-20 07:26] VITALS: BP 116/58; PULSE 74; RESP 19; TEMP 37.2; O2SAT 94
[2023-01-20 08:00] VITALS: PULSE 70
--- NOTE | 2023-01-20 10:10 | PC.NURSE ---
Courtesy Round Patient awake laying in bed .Trash emptied and ice water refilled. Patient voiced no needs at this time. Call light within reach of patient.
--- NOTE | 2023-01-20 10:46 | EXP.CARD.PN ---
Subjective Subjective Date: 01/20/23 Time: 09:30 Principal diagnosis: nonstemi Interval history: This is a 67-year-old white gentleman who presented to the emergency department with chest pain and abdominal pain. He was found to have an elevated troponin consistent with a non-STEMI. The patient underwent left cardiac catheterization yesterday and was found to have patent coronary artery disease and no intervention was required. This morning he denies any chest pain or pressure. He denies any shortness of breath or edema. He denies any fever, chills, nausea, vomiting, diarrhea, PND or orthopnea. Left heart cath shows: The left main artery Has a distal 20 to 30% hazy stenosis The left anterior descending artery Proximally occluded The circumflex artery Is dominant and has an ostial 10 to 20% stenosis. First obtuse marginal artery is ostially occluded. Distal circumflex artery gives off small terminal obtuse marginal artery branches all of which are patent The right coronary artery Nondominant and has a proximal 90% stenosis mid vessel 90% stenosis The LARKIN ventriculogram reveals Preserved ejection fraction at 55 to 60% The left ventricular end-diastolic pressure 10 mmHg SWAIN graft is wide open. Makes his first anastomosis onto a first diagonal artery then skips to the LAD. Both limbs are widely patent Saphenous vein graft to first obtuse marginal artery is widely patent Saphenous vein graft to right coronary artery proximally occluded IMPRESSION Small nondominant right coronary artery which has an occluded saphenous vein graft supplying the distal vessel Preserved ejection fraction Normal left ventricular end-diastolic pressure PLAN 1. Medical management for coronary artery disease 2. Recommend further evaluation of elevated lipase. Consider GI evaluation and work-up 3. Continue risk factor modification Exam Data for Last 24 hours Vital signs and Labs for Last 24 Hours: Temp Pulse Resp BP Pulse Ox O2 Del Method 98.9 F 70 19 116/58 L 94 L Room Air 01/20/23 07:26 01/20/23 08:00 01/20/23 07:26 01/20/23 07:26 01/20/23 07:26 01/20/23 08:00 Laboratory Results - last 24 hr 01/19/23 07:12: Triglycerides 127, Cholesterol 191, LDL Cholesterol Direct 105.60, VLDL Cholesterol 25, HDL Cholesterol 39 L, Cholesterol/HDL Ratio 4.9 H 01/19/23 14:08: Troponin I 0.53 H 01/19/23 18:45: Troponin I 0.22 H 01/20/23 06:06: WBC 6.7, RBC 4.35 L, Hgb 13.2 L, Hct 37.8 L, MCV 86.9, MCH 30.4, MCHC 35.0, RDW 14.6, Plt Count 194, MPV 8.1, Neut % (Auto) 58.3, Lymph % (Auto) 30.3, Tompkins % (Auto) 8.0, Eos % (Auto) 3.0, Baso % (Auto) 0.4, Neut # (Auto) 3.9, Lymph # (Auto) 2.0, [place] # (Auto) 0.5, Eos # (Auto) 0.2, Baso # (Auto) 0.0, Sodium 133 L, Potassium 4.1, Chloride 100, Carbon Dioxide 26, Anion Gap 11.1, BUN 22 H D, Creatinine 1.40 H D, Estimated Creat Clear 71, Estimated GFR 51 L, Est GFR ( Amer) 61 D, Glucose 122 H, Calcium 8.1 L I & O for Last 24 hours: Intake & Output 01/17/23 01/18/23 01/19/23 01/20/23 23:59 23:59 23:59 23:59 Intake Total 320 / 320 470 / 470 Output Total 400 / 400 0 / 0 Balance -80 / -80 470 / 470 Weight 213 lb 6 oz 215 lb 11.2 oz Narrative: EKG #1 shows sinus rhythm with nonspecific T wave abnormalities and a rate of 70 bpm. EKG #2 shows sinus rhythm with a rate of 66 bpm. Constitutional Constitutional: no acute distress and obese *Routine HEENT Exam Head: Present normocephalic and atraumatic ENT: Present mucous membranes moist *Routine Neck Exam Neck: Present supple, full ROM and normal carotid upstroke; Absent JVD, carotid bruit or lymphadenopathy *Routine Respiratory Exam Respiratory: Present CTA bilaterally, normal respiratory effort, able to speak in complete sentences and symmetric chest movement *Routine Cardiovascular Exam Cardiovascular: Present RRR, Normal S1 and Normal S2; Absent murmur or gallop *Routine Abdominal Exam Abdominal: Present soft and normoactive bowel sounds; Absen
--- NOTE | 2023-01-21 14:40 | CARE MANAGER ---
Contacted patient related to hospital discharge. He states he is doing well and picked up his new medication. Denies questions or concerns. DAVID Bee
--- NOTE | 2023-01-24 19:50 | EXP.DC.SUM ---
General Admission date:: 01/19/23 Discharge date: 01/20/23 HPI HPI HPI: Patient is a 67-year-old male with past medical history of CAD status post CABG, hypertension, obstructive sleep apnea who presented to hospital due to complaints of abdominal pain, lower chest pain. According to patient he has been having episodes of abdominal pain, he had 3 episodes of abdominal pain mostly in the right side of abdomen and lower chest and epigastric area that radiates to his left chest, episodes of pain start after food intake. He mentions he cannot pinpoint the exact area of pain localization, it feels like pain radiates to left chest. He rates pain episodes as sharp and resolved on their own. He he had associated nausea he mentions his pain is resolved right now, denies any shortness of breath diarrhea constipation dysuria fever chills cough. Hospital Course Hospital Course Hospital Course: atient was seen and evaluated at the bedside on the day of discharge. Patient is stable for discharge. Patient wishes to be discharged. All patient questions were answered and patient was given time to ask questions. Patient was discharged in stable condition. Patient is a 67-year-old male with past medical history of CAD status post CABG, hypertension, obstructive sleep apnea who presented to hospital due to complaints of abdominal pain, lower chest pain. According to patient he has been having episodes of abdominal pain, he had 3 episodes of abdominal pain mostly in the right side of abdomen and lower chest and epigastric area that radiates to his left chest, episodes of pain start after food intake. He mentions he cannot pinpoint the exact area of pain localization, it feels like pain radiates to left chest. He rates pain episodes as sharp and resolved on their own. He he had associated nausea he mentions his pain is resolved right now, denies any shortness of breath diarrhea constipation dysuria fever chills cough. Elevated troponin, left lower chest pain suspect NSTEMI, rule out ACS - evlauted by cardiology, stable for discharge, The patient underwent left cardiac catheterization and had patent coronary artery disease. No intervention was required. His coronary artery disease is currently stable. History of CAD status post CABG Hyperlipidemia Hypertension Obstructive sleep apnea Cholelithiasis Exam Data for Last 24 hours Vital signs and Labs for Last 24 Hours: Temp Pulse Resp BP Pulse Ox O2 Del Method 98.9 F 70 19 116/58 L 94 L Room Air 01/20/23 07:26 01/20/23 08:00 01/20/23 07:26 01/20/23 07:26 01/20/23 07:26 01/20/23 08:00 Constitutional Constitutional: no acute distress *Routine HEENT Exam Head: Present normocephalic Eye: Present EOMI and PERRL ENT: Present mucous membranes moist *Routine Neck Exam Neck: Present supple; Absent lymphadenopathy *Routine Respiratory Exam Respiratory: Present CTA bilaterally *Routine Cardiovascular Exam Cardiovascular: Present RRR *Routine Abdominal Exam Abdominal: Present soft and normoactive bowel sounds; Absent tenderness *Routine Extremities Exam Extremities: Absent cyanosis, clubbing or edema *Routine Skin Exam Skin: Present warm; Absent rash *Routine Neurological Exam Neurological: Present alert and oriented X3 DS: Diagnosis Discharge Diagnosis (1) CAD in [place] artery: Status: Acute Code(s): I25.10 - Atherosclerotic heart disease of [place] coronary artery without angina pectoris (2) S/P CABG x 5: Status: Acute Code(s): Z95.1 - Presence of aortocoronary bypass graft (3) High blood cholesterol: Status: Acute Code(s): E78.00 - Pure hypercholesterolemia, unspecified (4) High blood pressure: Status: Acute Code(s): I10 - Essential (primary) hypertension Qualifiers: Hypertension type: primary hypertension Qualified Code(s): I10 - Essential (primary) hypertension (5) Cholelithiasis: Status: Acute
== END 2023-01-20 10:45 | disposition home or self-care (01) ==
LOC: ER 08:10 → 2ND 08:39
PROVIDERS: Emergency Medicine; Internal Medicine; Nurse Practitioner Family; Admitting Provider Internal Medicine Adolescent Medicine; Emergency Provider Student in an Organized Health Care Education/Training Program; Visit Provider Internal Medicine Adolescent Medicine
DX: I21.4 Non-ST elevation (NSTEMI) myocardial infarction (principal); I25.10 Atherosclerotic heart disease of native coronary artery without angina pectoris; Z95.1 Presence of aortocoronary bypass graft; I25.810 Atherosclerosis of coronary artery bypass graft(s) without angina pectoris; I10 Essential (primary) hypertension; E78.5 Hyperlipidemia, unspecified; Z79.899 Other long term (current) drug therapy; K80.20 Calculus of gallbladder without cholecystitis without obstruction; G47.33 Obstructive sleep apnea (adult) (pediatric)
CPT/HCPCS: 36415; 71275; 74177; 80048; 80053; 80061; 83605; 83690; 84484; 85025; 93005; 93306; 93459; 99152; 99291; C1725; C1769; C1894; G0378; J1644; J2405; Q9967

== ENCOUNTER → 2023-01-26 11:11 | Outpatient (CLI) | payer MEDICAID, SELFPAY | PROVIDERS: Visit Provider Nurse Practitioner Family | DX: R74.8 Abnormal levels of other serum enzymes (principal) ==

== ENCOUNTER → 2023-01-26 13:59 | Outpatient (CLI) | payer MEDICARE, MEDICAID, SELFPAY ==
[2023-01-26 16:46] LABS: Alanine Aminotransferase 49 U/L (12-78); Albumin Level 4.3 g/dl (3.5-5.0); Albumin/Globulin Ratio 1.5 (1.1-1.8); Alkaline Phosphatase 74 U/L (38-126); Amylase 73 U/L (30-110); Anion Gap 14.8 mEq/L (5-15); Aspartate Amino Transferase 45 U/L (17-59); Bilirubin,Total 1.3 mg/dl (0.2-1.3); Blood Urea Nitrogen 16 mg/dl (9-20); Calcium 9.2 mg/dl (8.4-10.2); Carbon Dioxide 28 mmol/L (22.0-30.0); Chloride 102 mmol/L (98-107); Estimated Glomerular Filt Rate 75 ml/min (>60); GFR (African American) 90 ML/MIN (>60); Globulin 2.8 g/dL (1.3-3.2); Glucose 86 mg/dl (74-100); Lipase 61 U/L (23-300); Potassium 4.8 mmoL/L (3.5-5.1); Sodium 140 mmol/L (136-145); Total Protein,Serum 7.1 g/dl (6.3-8.2)
== END ==
PROVIDERS: PCP Nurse Practitioner Family; Visit Provider Nurse Practitioner Family
DX: K80.20 Calculus of gallbladder without cholecystitis without obstruction (principal); R74.8 Abnormal levels of other serum enzymes
CPT/HCPCS: 80053; 82150; 83690

== ENCOUNTER → 2023-02-04 08:44 | Outpatient (CLI) | payer MEDICARE, MEDICAID, SELFPAY ==
--- NOTE | 2023-02-04 08:44 | US_ITS ---
FINAL REPORT CLINICAL HISTORY: cholelithiasis COMPARISON: None FINDINGS: Sonographic images of the right upper quadrant were obtained. The pancreas is obscured by overlying bowel gas. There is increased echogenicity in the liver compatible with fatty infiltration. Multiple gallstones are noted in the gallbladder, with mild gallbladder wall thickening, measuring 4 mm in thickness. There is no evidence of biliary ductal dilatation.The common duct measures 4 mm. Limited images of the right kidney are unremarkable. IMPRESSION: Multiple gallstones in the gallbladder with mild gallbladder wall thickening, measuring 4 mm in thickness. Cholecystitis is not excluded. Mild fatty infiltration of the liver. Reviewed, Interpreted and Dictated by Noah Fink III, MD Transcribed by Kristal Goldstein Authenticated and [facility]
--- NOTE | 2023-02-04 08:49 | CA_ITS ---
FINAL REPORT TECHNIQUE: Color Doppler, duplex Doppler and sheets scale sonography of the bilateral neck vasculature was performed. Velocities were measured in the carotid arteries. Stenosis evaluation based on velocity criteria. CLINICAL HISTORY: CATHERINE COMPARISON: None FINDINGS: The peak systolic velocity of the right common carotid artery is 72 cm/sec and internal carotid artery 113 cm/sec. The diastolic velocity in the internal carotid artery is 37 cm/sec. The ICA/CCA ratio is 1.6. Visually, a moderate amount of plaque is seen. These findings are consistent with less than 50% stenosis. The external carotid artery is patent. The right vertebral artery is patent with antegrade flow. The peak systolic velocity of the left common carotid artery is 88 cm/sec and internal carotid artery 80 cm/sec. The diastolic velocity in the internal carotid artery is 28 cm/sec. The ICA/CCA ratio is 0.9. Visually, a small amount of plaque is seen. These findings are consistent with less than 50% stenosis. The external carotid artery is patent. The left vertebral artery is patent with antegrade flow. IMPRESSION: No evidence of significant carotid stenosis. Bilateral patent vertebral arteries. If indicated, CTA or MRA could further evaluate. Reviewed, Interpreted and Dictated by Noah Fink III, MD Transcribed by Kristal Goldstein Authenticated and [facility]
== END ==
PROVIDERS: PCP Internal Medicine; Visit Provider Nurse Practitioner Family
DX: K80.20 Calculus of gallbladder without cholecystitis without obstruction (principal); R74.8 Abnormal levels of other serum enzymes; E78.00 Pure hypercholesterolemia, unspecified; I10 Essential (primary) hypertension; I25.10 Atherosclerotic heart disease of native coronary artery without angina pectoris; I65.23 Occlusion and stenosis of bilateral carotid arteries; Z87.891 Personal history of nicotine dependence
CPT/HCPCS: 76705; 93880

== ENCOUNTER → 2023-02-09 10:34 | Outpatient (CLI) | payer MEDICARE, MEDICAID, SELFPAY | PROVIDERS: PCP Nurse Practitioner Family; Visit Provider Nurse Practitioner Family | DX: K80.20 Calculus of gallbladder without cholecystitis without obstruction (principal) ==

== ENCOUNTER 2023-03-08 07:26 | Day surgery (SDC) | payer MEDICARE, MEDICAID, SELFPAY ==
[2023-03-04 17:19] VITALS: BMI 34.2
[2023-03-08] VITALS (9 sets, daily range): BP systolic 94–147; BP diastolic 43–84; PULSE 70–83; RESP 16–18; TEMP 36.1–36.4; O2SAT 94–98
[2023-03-08 08:01] LABS: Basophils # 0.1 K/mm3 (0-0.2); Basophils % 0.9 % (0.1-2.0); Eosinophils # 0.3 K/mm3 (0.0-0.4); Eosinophils % 4.1 % (0.1-12.0); Hematocrit 45.1 % (42.0-52.0); Hemoglobin 15.1 g/dL (14.1-18.0); Lymphocytes # 2.2 K/mm3 (0.7-4.5); Lymphocytes % 33.3 % (10-50); Mean Corpuscular HGB Conc 33.4 g/dL (31.8-35.4); Mean Corpuscular Hemoglobin 29.5 pg (27.0-31.2); Mean Corpuscular Volume 88.4 fl (80-94); Mean Platelet Volume 7.9 fl (7.4-10.4); Monocytes # 0.3 K/mm3 (0.1-1.0); Monocytes % 4.8 % (1.7-9.3); Neutrophils # 3.8 K/mm3 (1.8-7.8); Neutrophils % 56.8 % (37.0-80.0); Platelet Count 247 K/mm3 (142-424); Red Cell Distribution Width 14.9 % (11.5-17.5); White Blood Count 6.6 K/mm3 (4.8-10.8)
--- NOTE | 2023-03-08 08:16 | EXP.ANES.CKL ---
[facility] Disclaimer: The information contained in this section may have been updated after the patient was seen, as this information can be updated by other users. Medical History CAD in [place] artery Carotid artery stenosis Coronary artery stenosis Elevated lipase H/O renal calculi High blood cholesterol High blood pressure MEAGAN (obstructive sleep apnea) Surgical History H/O heart bypass surgery S/P CABG x 5 Family History Other No significant family history Social History Smoking Status: Former smoker smoking status stop date: 04/05/2009 alcohol intake: never substance use type: denies use current occupational status: retired Travel in the last 8 weeks: Inside the [facility] housing: house lives independently: Yes marital status: pets and animals: No [facility] Anesthesia Checklist Patient Identification Patient Identification: Arm Band Structural Data Admitted From: Home Planned Operative Procedure/s: Laparoscopic Cholecystectomy Consent for Planned Operative Procedure(s) Verified: Yes Verified Documents: Surgical Consent and History and Physical NPO Status Verified Time NPO: 00:00 Additional verifications Anesthesia Reactions: No Hx Blood Transfusions: No Blood Transfusion Reaction: No Airway Assessment Mallampati Score:: Class II C-Spine Mobility Assessed: Yes TMJ Mobility Assessed: Yes Dentition: Edentulous Neurological Assessment Level of Consciousness: Awake and Alert Anesthesia Plan Anesthesia Risk discussed: Yes Anesthesia Plan: Verified ASA Class: III Anesthesia Type: General
[2023-03-08 08:17] LABS: Chloride 103 mmol/L (98-107); Potassium 4.1 mmoL/L (3.5-5.1); Sodium 138 mmol/L (136-145)
[2023-03-08 08:20] LABS: Alanine Aminotransferase 61 U/L (12-78); Albumin Level 4.6 g/dl (3.5-5.0); Albumin/Globulin Ratio 1.4 (1.1-1.8); Alkaline Phosphatase 75 U/L (38-126); Anion Gap 12.1 mEq/L (5-15); Aspartate Amino Transferase 52 U/L (17-59); Bilirubin,Total 1.6 mg/dl (0.2-1.3); Blood Urea Nitrogen 17 mg/dl (9-20); Calcium 8.6 mg/dl (8.4-10.2); Carbon Dioxide 27 mmol/L (22.0-30.0); Creatinine Clearance Estimated 97 mL/min (50-200); Estimated Glomerular Filt Rate 84 ml/min (>60); GFR (African American) 102 ML/MIN (>60); Globulin 3.2 g/dL (1.3-3.2); Glucose 130 mg/dl (74-100); Total Protein,Serum 7.8 g/dl (6.3-8.2)
--- NOTE | 2023-03-08 10:44 | EXP.OP.NOTE ---
Date of procedure: 03/08/23 Pre-op Diagnosis:: Symptomatic gallstones Post-op Diagnosis:: Same Procedure performed:: Laparoscopic cholecystectomy Surgeon:: Noah Chu MD Anesthesia: GETA Estimated blood loss (mL): 25 Clinical Note:: Patient is a very pleasant 67-year-old male from [place] with history of sleep apnea and coronary artery disease status post CABG. He states that he has had some symptoms over the past 2 months retrospectively consistent with biliary colic. He describes usually in the evenings he has had occasional attacks of right upper quadrant pain radiating into his epigastrium and into his back. He has been to [facility] on 1 occasion for this and to [facility] a couple of times. He was seen in the emergency department on 12/23/2022. Cardiac evaluation was unremarkable at that time. He was able to be managed as an outpatient. He once again presented on 01/19/2023 with symptoms of right upper quadrant, epigastric, lower substernal pain occurring after eating. At that time he was admitted for inpatient management and cardiology had actually performed left heart catheterization which revealed preserved ejection fraction, small nondominant right coronary artery with occluded saphenous vein graft. Medical management was recommended. It should be noted that during that admission evaluation revealed an elevated lipase to 468. He also had a bilirubin of 1.8 at that time. Previously had bilirubin as high as 3.2 on 11/29/2021. Most recent bilirubin is normal. He underwent gallbladder ultrasound on 02/04/2023 which revealed multiple gallstones in the gallbladder with mild gallbladder wall thickening measuring 4 mm with some fatty infiltration of the liver. Common bile duct is 4 mm. Patient had a HIDA scan ordered which was scheduled for today on . Upon presentation to radiology it was felt that he could not undergo this procedure due to the multiple gallstones. Office was contacted regarding patient being seen today as he was at this facility. Patient states that he previously had a diagnosis of gallstones many years ago. He states 15 years ago and states that he was told he needed his gallbladder removed. Operative findings:: He had a thickened gallbladder packed full of multiple gallstones. There was significant chronic inflammation and scarring. There was some appreciable fatty infiltration of the liver with mild nodularity. Operative note:: Patient was taken to the operating room. He was given preoperative intravenous antibiotics. In the operating room he was placed in a supine position. General anesthesia was induced via endotracheal tube. Abdomen was prepped and draped in the standard surgical fashion. Subumbilical skin incision was made. While performing abdominal wall lift Veress needle was inserted. CO2 pneumoperitoneum was achieved to 15 mmHg. 11 mm optical trocar was inserted at the umbilicus. Intraperitoneal contents were visualized. He was positioned in reverse Trendelenburg with the left side down. A couple 5 mm trocars were inserted in the right upper abdomen. 10 mm trocar was inserted in the epigastrium. There was some significant visceral fat. There was fatty infiltration of the liver. Liver was elevated. There were adhesions to the liver surrounding the gallbladder. Some of these were taken down using MARYELLEN ultrasonic harmonic andria. Gallbladder was then identified and retracted anteriorly. Dissection was carried out dissecting free the adhesions to the gallbladder. Dissection was carried down to the gallbladder neck. Initially delineation of the anatomy was rather challenging due to chronic inflammation. Gallbladder was partially intrahepatic. Ultimately cystic duct was identified. Careful dissection was carried out identifying and isolating the cystic duct and the critical view of safety. The cystic duct was then multiply clipped and sharply divided. Cysti
--- NOTE | 2023-03-08 10:54 | EXP.ANES.I ---
[facility] Anesthesia Record Part I Anesthesia Record I Intake, IV Amount: 900 Hydration: Adequate Estimated blood loss (mL): 25 Urine output (mL): 0 Blood Products used (#): none Blood Pressure: 94/52 SaO2: 94 Pulse Rate: 82 Airway Patency: Patent Respiratory Rate: 16 Temperature: 97.2 F Patient is:: Awake (Talking) and Stable Stable to PACU at:: 10:55
--- NOTE | 2023-03-09 13:06 | EXP.ANES.II ---
[facility] Anesthesia Record Part II Anesthesia Record Part II Discharge Time: 11:20 Destination: Surgical Day Care (OP Surgery) PACU nurse assessment reviewed?: Yes Patient Condition:: Good Anesthesia Complications:: None Swallowing reflex intact?: Yes Airway Patency: Patent Cyanosis?: No Blood Pressure: 107/68 SaO2: 97 Respiratory Rate: 16 Pulse Rate: 81 Temperature: 97 F Mental Status: Alert & Oriented Pain level:: 0 Nausea and/or vomitting:: None Intake, IV Amount: 0 Hydration: Adequate
[2023-03-09 13:07] VITALS: BP 107/68; PULSE 81; RESP 16; TEMP 36.1; O2SAT 97
== END 2023-03-08 11:51 | disposition home or self-care (01) ==
PROVIDERS: PCP Nurse Practitioner Family; Visit Provider Surgery
PROC: 0FT44ZZ Resection of Gallbladder, Percutaneous Endoscopic Approach (ICD-10-PCS; CPT 47562; principal; 2023-03-08 09:00)
DX: K80.18 Calculus of gallbladder with other cholecystitis without obstruction (principal)
CPT/HCPCS: 47562; 80053; 85025; 88304; 96374; J0690; J2405

== ENCOUNTER 2024-02-08 14:53 | Outpatient (CLI) | payer MEDICARE, MEDICAID, SELFPAY ==
--- NOTE | 2024-02-08 14:56 | CA_ITS ---
APPROVED REPORT EXAM: Comprehensive 2D, Doppler, and color-flow Echocardiogram Development Executive: TOM Singh, RVS Ht: 5 ft 6 in Wt: 212lbs BSA: 2.05 BP: 130/74 mmHg Indications: mr, cad, cabg, htn, hld 2D Dimensions IVSd 0.66 cm M: 0.6-1.2 LVEF (Visual) 66.20 % PWd 0.96 cm M: 0.6 - 1.2 LA Volume 45.60 mL LVDd 5.85 cm M: 4.2 - 5.9 LA Volume Index 22.24 mL/m2 (M/F) 16-34 LVDs 3.68 cm M: 2.5 - 4.0 Left Atrium 4.37 cm M: 3.0 - 4.0 M-Mode Dimensions LA Diam 3.75 cm (1.9-4.0) EPSs 0.76 cm LV Diastology E Decel Time 213 (160-240 msec) E/A Ratio 0.82 MED A' 8.80 cm/s LAT A' 11.90 cm/s Aortic Valve AMARILIS Index 0.92 cm2/m2 AoV Peak Jignesh. 174.0 (50-130 cm/s) AO Peak GR. 12.00 mmHg AO Mean GR. 6.00 (<5 mmHg) AO VTI 33.1 (18-25 cm) AMARILIS (VTI) 1.94 (2.5-4.5 cm2) Mitral Valve MV A Velocity 99.0 (40-130 cm/s) E/A Ratio 0.82 Pulmonary Valve PV Peak Velocity 74.0 (50-150 cm/s) Tricuspid Valve TR P. Velocity 220.00 cm/s RAP Estimate 10.00 mmHg RVSP 29.30 mmHg Left Ventricle The left ventricle is normal size. The left ventricular systolic function is normal. The left ventricular ejection fraction is within the normal range. There is increased LV wall thickness. There is mild hypokinesis of the anterior and anteroseptal LV castellano. Transmitral Doppler flow pattern suggests impaired LV relaxation. LVEF is 55%. Right Ventricle The right ventricle is normal size. The right ventricular systolic function is normal. Atria Left atrium is mildly dilated. Right atrium is mildly dilated. There is no Doppler evidence of interatrial shunt. Aortic Valve Aortic valve is mildly thickened. There is no aortic valvular stenosis. No aortic regurgitation is present. Mitral Valve The mitral valve is normal in structure. No evidence of mitral valve stenosis. Trace mitral regurgitation. Tricuspid Valve Tricuspid valve is grossly normal in structure and function. Trace tricuspid regurgitation. RVSP is 20-25 mmHg. Pulmonic Valve The pulmonary valve is normal in structure. Trace pulmonic regurgitation. Great Vessels The aortic root is normal in size. The ascending aorta is not well-visualized. IVC is normal in size and collapses >50% with inspiration. Pericardium There is no pericardial effusion. Other Information Study Quality: Fair Conclusion Normal biventricular systolic function. Mild biatrial dilation. No significant valvular stenosis or regurgitation. Electronically signed by : Nikole Finch MD 02/13/2024 03:58:42
[2024-02-08 15:22] LABS: Basophils # 0.1 K/mm3 (0-0.2); Eosinophils # 0.2 K/mm3 (0.0-0.4); Eosinophils % 2.9 % (0.1-12.0); Hematocrit 41.1 % (42.0-52.0); Hemoglobin 14.3 g/dL (14.1-18.0); Lymphocytes # 2.1 K/mm3 (0.7-4.5); Lymphocytes % 35.2 % (10-50); Mean Corpuscular HGB Conc 34.9 g/dL (31.8-35.4); Mean Corpuscular Hemoglobin 29.8 pg (27.0-31.2); Mean Corpuscular Volume 85.2 fl (80-94); Mean Platelet Volume 7.8 fl (7.4-10.4); Monocytes # 0.4 K/mm3 (0.1-1.0); Monocytes % 6.1 % (1.7-9.3); Neutrophils # 3.3 K/mm3 (1.8-7.8); Neutrophils % 54.8 % (37.0-80.0); Platelet Count 206 K/mm3 (142-424); Red Blood Count 4.82 M/mm3 (4.60-6.20); Red Cell Distribution Width 14.9 % (11.5-17.5); White Blood Count 6.1 K/mm3 (4.8-10.8)
[2024-02-08 16:05] LABS: Alanine Aminotransferase 46 U/L (12-78); Albumin Level 4.2 g/dl (3.5-5.0); Alkaline Phosphatase 59 U/L (38-126); Aspartate Amino Transferase 39 U/L (17-59); Bilirubin,Indirect 1.3 mg/dL (0.0-0.9); Bilirubin,Total 1.3 mg/dl (0.2-1.3); Bilirubin,Unconjugated 1.3 mg/dL (0.0-1.1); Blood Urea Nitrogen 17 mg/dl (9-20); Calcium 8.9 mg/dl (8.4-10.2); Carbon Dioxide 29 mmol/L (22.0-30.0); Chloride 105 mmol/L (98-107); Chol/HDL Ratio 4.1 (1-3.5); Cholesterol 156 mg/dl (140-200); Estimated Glomerular Filt Rate 60 ml/min (>60); GFR (African American) 73 ML/MIN (>60); Glucose 88 mg/dl (74-100); HDL Cholesterol 38 mg/dl (40-60); Magnesium 1.8 mg/dl (1.6-2.3); Sodium 142 mmol/L (136-145); Total Protein,Serum 6.4 g/dl (6.3-8.2); Triglycerides 169 mg/dl (30-150); VLDL Cholesterol 34 mg/dL (0-40)
[2024-02-08 16:15] LABS: Direct LDL Cholesterol 94.63 mg/dL (100-129)
[2024-02-08 16:32] LABS: Thyroid Stimulating Hormone 3.07 uIU/mL (0.465-4.68)
== END 2024-02-08 23:59 | disposition home or self-care (01) ==
LOC: RT 14:53
PROVIDERS: PCP Family Medicine; Visit Provider Nurse Practitioner Family
DX: I34.1 Nonrheumatic mitral (valve) prolapse (principal); I34.0 Nonrheumatic mitral (valve) insufficiency; I65.23 Occlusion and stenosis of bilateral carotid arteries; E78.00 Pure hypercholesterolemia, unspecified; I11.9 Hypertensive heart disease without heart failure; I25.10 Atherosclerotic heart disease of native coronary artery without angina pectoris
CPT/HCPCS: 36415; 80048; 80061; 80076; 83735; 84439; 84443; 85025; 93306

== ENCOUNTER 2024-11-21 09:05 | Outpatient (CLI) | payer MEDICARE, MEDICAID, SELFPAY ==
[2024-11-21 16:27] LABS: Hematocrit 42.9 % (42.0-52.0); Hemoglobin 13.7 g/dL (14.1-18.0); Immature Granulocytes % 0.2 %; Mean Corpuscular HGB Conc 31.9 g/dL (31.8-35.4); Mean Corpuscular Hemoglobin 29.3 pg (27.0-31.2); Mean Corpuscular Volume 91.9 fl (80-94); Nucleated Red Blood Cells % 0 %; Platelet Count 199 K/mm3 (142-424); Red Blood Count 4.67 M/mm3 (4.60-6.20); Red Cell Distribution Width-SD 49.5 fL; White Blood Count 5.2 K/mm3 (4.8-10.8)
[2024-11-21 16:41] LABS: Alanine Aminotransferase 73 U/L (12-78); Albumin Level 4.4 g/dl (3.5-5.0); Albumin/Globulin Ratio 1.9 (1.1-1.8); Alkaline Phosphatase 76 U/L (38-126); Anion Gap 14.8 mEq/L (5-15); Aspartate Amino Transferase 60 U/L (17-59); Bilirubin,Total 2.1 mg/dl (0.2-1.3); Blood Urea Nitrogen 14 mg/dl (9-20); Calcium 8.9 mg/dl (8.4-10.2); Carbon Dioxide 26 mmol/L (22.0-30.0); Chloride 101 mmol/L (98-107); Cholesterol 134 mg/dl (140-200); Creatinine,Serum 0.90 mg/dl (0.66-1.25); Estimated Glomerular Filt Rate 84 ml/min (>60); GFR (African American) 101 ML/MIN (>60); Globulin 2.3 g/dL (1.3-3.2); Glucose 84 mg/dl (74-100); HDL Cholesterol 40 mg/dl (40-60); Magnesium 2.0 mg/dl (1.6-2.3); Potassium 4.8 mmoL/L (3.5-5.1); Sodium 137 mmol/L (136-145); Total Protein,Serum 6.7 g/dl (6.3-8.2); Triglycerides 103 mg/dl (30-150)
[2024-11-21 17:11] LABS: Free Thyroxine Index 2.8 ug/dL (5.93-13.13); T4 (Thyroxine) 9.1 ug/dl (5.53-11.0); Triiodothryronine (T3) Uptake 31 % (23.5-40.5)
[2024-11-21 17:25] LABS: Thyroid Stimulating Hormone 2.27 uIU/mL (0.465-4.68)
[2024-11-21 17:29] LABS: Hepatitis C Ab Qual. W/ RFX NEGATIVE (Negative)
[2024-11-22 09:29] LABS: Hepatitis B Surface Antigen Negative (Negative)
--- OUTSIDE RECORDS SUMMARY | 2024-11-22 10:50 | XMS_ITS ---
Author Organization Unknown TREATMENT PLAN Planned Care Start Date Provider Encounter for Check-up [phone] [facility]
--- OUTSIDE RECORDS SUMMARY | 2024-11-22 10:51 | XMS_ITS | Clinical Summary ---
Author Organization [facility] Address [address] [place] [address] Care Team Providers Care Etched Circuit Processor Name Role Phone Provider, No Known Primary Care Provider Unavail able Allergies No known active allergies Medications aspirin 81 MG chewable tabletIndication s:Coronary artery disease involving [place] heart without angina pectoris, unspecified vessel or lesion type,Bilateral carotid artery stenosis Chew 1 tablet Daily. Active atorvastatin (LIPITOR) 40 MG tabletIndication s:Coronary artery disease involving [place] heart without angina pectoris, unspecified vessel or lesion type,Hyperlipide michelle LDL goal <70,Bilateral carotid artery stenosis TAKE 1 TABLET BY MOUTH DAILY. 90 tablet 05/12/2023 Active metoprolol succinate XL (TOPROL-XL) 25 MG 24 hr tabletIndication s:Coronary artery disease involving [place] heart without angina pectoris, unspecified vessel or lesion type TAKE 1 TABLET BY MOUTH DAILY. 90 tablet 05/12/2023 Active Active Problems Problem Noted Date Diagnosed Date Hyperglycemia 08/19/2022 Carotid stenosis Coronary artery disease Overview (08/19/2022): s/p 2009 Hyperlipidemia LDL goal <70 MEAGAN (obstructive sleep apnea) Overview (08/19/2022): baseline AHI 80 Family History Medical History Relation Name Comments COPD Brother 1 Heart disease Brother 1 Rheum arthritis Brother 2 Cancer Father Hyperlipidemia Mother Ovarian cancer Sister Relation Name Status Comments Brother 1 Alive Brother 2 Alive Father (Age 81) Mother Alive Sister (Age 51) Social History Tobacco Use Types Packs/Day Years Used Date Smoking Tobacco: Former Cigarettes 2 38 1 972 - 2010 Passive Smoke Exposure: Never Smokeless Tobacco: Never Tobacco Cessation:Counseling Given: Yes Alcohol Use Standard Drinks/Week Comments Never 0 (1 standard drink = 0.6 oz pur e alcohol) Abuse Screen Answer Date Recorded Unsafe at Home or Work/School Not on file Feels Threatened by Someone? Not on file Does Anyone Keep You from Co ntacting Others or Doint Things Outside the Home? Not on file 01/15/2023 Physical Sign of Abuse Present Not on file 1 Housing Stability Answer Date Recorded Current Living Arrangements Not on file 01/03 Potentially Unsafe Housing Conditions Not on marin e 01/15/2023 Family and Community Support Answer Wenceslao e Recorded Help with Day-to-Day Activities Not on file 01/15/2023 Lonely or Isolated Not on file 01/15/2023 Employment Answer Date Recorded Do you want help finding or keeping work or a wilfrido b? Not on file 01/15/2023 Disabilities Answer Date Recorded Concentrating, Remembering, or Making Decisions Difficulty Not on file 01/15/2023 Doing Errands Independently Difficulty Not on fi le 01/15/2023 Education Answer Date Recorded Help with school or training? Not on file Preferred Language Not on file 01/15/2023 Sex and Gender Information Value Date Recorded Sex Assigned at Not on file Legal Sex Male 1:57 PM EST Gender Identity Not on file Sexual Orientation Not on file Last Filed Vital Signs Vital Sign Reading Time Taken Comments Blood Pressure 118/64 08/19/2022 2:25 PM EDT Pulse 76 08/19/2022 2:25 PM EDT Temperature - - Respiratory Rate - - Oxygen Saturation 94% 08/19/2022 2:25 PM EDT Inhaled Oxygen Concentration - - Weight 97.5 kg (215 lb) 08/19/2022 2:25 PM EDT Height 162.6 cm (5' 4 ) 08/19/2022 2:25 PM EDT Body Mass Index 36.9 08/19/2022 2:25 PM EDT Plan of Treatment Health Maintenance Due Date Last Done Comments COLOGMANUEL 08/10/2000 COLON CANCER SCREENING 5 YEA R SIGMOIDOSCOPY 08/10/2000 COLONOSCOPY 08/10/2000 COLORECTAL CANCER SCREENING 08/10/2000 CT COLONOGRAPHY 08/10/2000 FECAL OCCULT BLOOD TEST 08/10/2000 FIT Testing (1 year) 08/10/2000 Pneumococcal Vaccine 50+ (1 of 1 - PCV) 08/10/2005 ZOSTER VACCINE (1 of 2) 08/10/2005 AAA SCREEN ONCE 08/10/2020 ANNUAL WELLNESS VISIT 06/16/2022 HEPATITIS C SCREENING 06/16/2022 LIPID PANEL 08/27/2023 08/26/2022 COVID-19 Vaccine ( season) 2023 03/20/2021, 07/25/2020, 06/27/2020 INFLUENZA VACCINE 01/03/2025 05/03/2017 TDAP/TD VACCINES (2 - Td or Tdap) 07/17/2027 018 Procedures Procedure Name Priority Date/Time Associated Diagnosis Comments LIPID PANEL Routine 08/26/2022 Coronary artery disease involving [place] heart without angina pectoris, unspecified vessel or lesion type Hyperglycemia Hyperlipidemia LDL goal <70 from Last 3 Months or Most Recently Relevant to Health Maintenance Results * Lipid Panel (08/26/2022) Blood Yadi Peter DIRECTOR OF CORPORATE RESPONSIBILITY LAB BLOOD ORDERABLE S Final Result [facility] [address] [place] [address], from Last 3 Months or Most Recently Relevant to Health Maintenance Insurance [facility] MEDICARE ADVANTAGE Care Teams Etched Circuit Processor Relationship Specialty Start Date End Date Provider, No Known [facility] [place] [id number] PCP - General 08/19/22
== END 2024-11-21 23:59 | disposition home or self-care (01) ==
LOC: LAB.DROPOF 11-22 10:37
PROVIDERS: PCP Nurse Practitioner Family; Visit Provider Nurse Practitioner Family
DX: I25.10 Atherosclerotic heart disease of native coronary artery without angina pectoris (principal); I10 Essential (primary) hypertension; E78.00 Pure hypercholesterolemia, unspecified; Z12.5 Encounter for screening for malignant neoplasm of prostate; Z11.59 Encounter for screening for other viral diseases; Z11.4 Encounter for screening for human immunodeficiency virus [HIV]
CPT/HCPCS: 80053; 80061; 83735; 84436; 84443; 84479; 85025; 86803; 87340; 87389; G0103